=== PATIENT | female | born 1935 | race Caucasian/White ===

== ENCOUNTER 2018-12-28 07:04 | Emergency (ER) | payer MEDICARE, MEDICAID ==
[2018-12-28] MEDS ORDERED: ONDANSETRON 4 MG TAB.RAPDIS ONE (07:22)
[2018-12-28] MEDS ORDERED: HYDROCODONE/APAP 5/325MG 1 EACH TABLET ONE (07:22)
[2018-12-28] MEDS ORDERED: ONDANSETRON 4 MG TAB.RAPDIS SL ONE (07:30)
[2018-12-28] MEDS ORDERED: HYDROCODONE/APAP 5/325MG 1 EACH TABLET PO ONE (07:30)
== END 2018-12-28 08:45 | disposition home or self-care (01) ==
DX: S42.492A Other displaced fracture of lower end of left humerus, initial encounter for closed fracture (principal); I10 Essential (primary) hypertension; W01.0XXA Fall on same level from slipping, tripping and stumbling without subsequent striking against object, initial encounter; Y93.89 Activity, other specified; Y92.89 Other specified places as the place of occurrence of the external cause; Y99.8 Other external cause status
CPT/HCPCS: 29105; 73070; 99283; Q0162

== ENCOUNTER 2019-02-08 13:26 | Inpatient (IN) | payer MEDICARE, MEDICAID ==
[~2019-02-08] VITALS: Ht 142.2 cm; Wt 74.4 kg
--- NOTE | 2019-02-08 13:30 | NUR ---
PT [id number], FROM HOME, C/O BACK PAIN x 2 DAYS, PT IS AAOX2, NOT IN RESPIRATORY DISTRESS, HOOKED TO MONITOR, KEPT RESTED AND COMFORTABLE, WILL CONTINUE TO MONITOR. AWAITING ER MD FOR EVAL.
--- NOTE | 2019-02-08 13:50 | NUR ---
KALIE REILLY AT BEDSIDE FOR EVAL.
[2019-02-08] MEDS ORDERED: TRAMADOL HCL 50 MG TABLET PO ONE (14:00)
[2019-02-08] MEDS ORDERED: IV NS 0.9% 1,000 ML BAG IV ONE (14:00)
--- NOTE | 2019-02-08 14:10 | NUR ---
IV LINE ESTABLISHED, BLOOD DRAWNED AND SENT TO LAB.
--- NOTE | 2019-02-08 14:16 | NUR ---
URINE SPECIMEN COLLECTED AND SENT TO LAB.
[2019-02-08] MEDS ORDERED: TRAMADOL HCL 50 MG TABLET ONE (14:17)
[2019-02-08] MEDS ORDERED: ONDANSETRON HCL/PF 4 MG/2 ML VIAL ONE (14:21)
[2019-02-08] MEDS ORDERED: MORPHINE SULFATE INJ 2 MG/ML DISP.SYRIN ONE ×2 (14:21→16:06)
[2019-02-08 14:28] LABS: APPEARANCE,URINE Clear (CLEAR); BILIRUBIN,URINE Negative (NEGATIVE); BLOOD, URINE Trace-intact Ery/uL (NEGATIVE); COLOR,URINE Yellow (YELLOW); KETONES,URINE Negative (NEGATIVE); LEUKOCYTE ESTERASE ,URINE Negative (NEGATIVE); NITRITE, URINE Negative (NEGATIVE); PROTEIN,URINE Negative (NEGATIVE); UGLUCOSE Negative (NEGATIVE); UROBILINOGEN,URINE 0.2 EU/dL (0.2)
[2019-02-08 14:29] LABS: BACTERIA,URINE Few /HPF (None Seen); RBC,URINE 0-2 /HPF (0-2); SQUAMOUS EPITHELIAL CELL,UR Few /HPF (None Seen); WBC,URINE 0-2 /HPF (0-3)
[2019-02-08] MEDS ORDERED: ONDANSETRON HCL/PF 4 MG/2 ML VIAL IV ONE (14:30)
[2019-02-08] MEDS ORDERED: MORPHINE SULFATE INJ 2 MG/ML DISP.SYRIN IV ONE ×2 (14:30→16:30)
--- NOTE | 2019-02-08 14:33 | NUR ---
EIGHT ARM OPERATOR AT BEDSIDE FOR XRAY.
[2019-02-08] MEDS ORDERED: METO-357 PO (15:51)
[2019-02-08 15:58] LABS: BASOPHILS # (AUTO) 0.1 /CMM (0.0-0.2); BASOPHILS % (AUTO) 0.7 % (0.0-2.0); EOSINOPHILS % (AUTO) 0.7 % (0.0-6.0); HEMATOCRIT 46 % (33-45); HEMOGLOBIN 15.9 g/dL (11.5-14.8); LYMPHOCYTES # (AUTO) 1.6 /CMM (0.8-4.8); LYMPHOCYTES % (AUTO) 17.8 % (20.0-44.0); MEAN CORPUSCULAR HGB CONC 34 g/dl (31.0-36.0); MEAN CORPUSCULAR VOLUME 95 fL (82-100); MONOCYTES # (AUTO) 0.5 /CMM (0.1-1.30); MONOCYTES % (AUTO) 5.7 % (2.0-12.0); NEUTROPHILS # (AUTO) 6.7 /CMM (1.8-8.9); NEUTROPHILS % (AUTO) 75.1 % (43.0-81.0); PLATELET COUNT (AUTO) 204 /CMM (150-450); WHITE BLOOD COUNT (AUTO) 8.9 K/uL (4.3-11.0)
[2019-02-08 16:01] LABS: CARBON DIOXIDE 23 mmol/L (21-32); CHLORIDE 107 mmol/L (98-107); CREATININE 1.4 mg/dL (0.6-1.3); GLUCOSE 112 mg/dL (74-106); POTASSIUM 3.8 mmol/L (3.5-5.1); SODIUM SERUM 140 mmol/L (136-145); UREA NITROGEN, BLOOD 28 mg/dL (7-18)
[2019-02-08 16:07] LABS: ALANINE AMINOTRANSFERASE 19 U/L (12-78); ALBUMIN 3.6 g/dL (3.4-5.0); ALKALINE PHOSPHATASE 220 U/L (46-116); ASPARTATE AMINOTRANSFERASE 20 U/L (15-37); BILIRUBIN,DIRECT 0.1 mg/dL (0.0-0.2); BILIRUBIN,TOTAL 0.5 mg/dL (0.2-1.0); TOTAL PROTEIN, SERUM 7.7 g/dL (6.4-8.2)
[2019-02-08 16:28] LABS: CALCIUM, SERUM 9.9 mg/dL (8.5-10.1)
--- NOTE | 2019-02-08 16:33 | NUR ---
[facility]
--- NOTE | 2019-02-08 17:03 | NUR ---
REPORT GIVEN TO LETHA DIXON FOR RENE.
--- NOTE | 2019-02-08 17:50 | NUR ---
MS RN ADMITTING NOTES ADMITTED 83 Y/O FEMALE TO UNIT VIA GURNEY ACCOMPANIED BY 2 E.R STAFF AND DAUGHTER. A/O X 4. ABLE TO MAKE NEEDS KNOWN. PATIENT ORIENTED TO UNIT, ROOM AND STAFF. ON ROOM AIR, BREATHING EVEN AND UNLABORED. V/S TAKEN AND RECORDED. PATIENT REFUSED SKIN ASSESSMENT. LUNGS CLEAR ON AUSCULTATION. PT WITH IV ACCESS ON RIGHT HAND #18, CURRENTLY SL. SAFETY MEASURES INITIATED. BED PLACED IN LOW LOCKED POSITION WITH SIDE RAILS UP X2. CALL LIGHT WITHIN REACH. WILL CONTINUE TO MONITOR.
[2019-02-08] MEDS ORDERED: ZOLPIDEM TARTRATE 5 MG TABLET PO PRN (18:00)
[2019-02-08] MEDS ORDERED: ACETAMINOPHEN 325 MG TABLET PO PRN (18:00)
[2019-02-08] MEDS ORDERED: MAG HYDROX/AL HYDROX/SIMETH 30 ML UDC PO PRN (18:00)
[2019-02-08] MEDS ORDERED: Z GUARD REMEDY 2 OZ OINT TP PRN (18:00)
[2019-02-08] MEDS ORDERED: ONDANSETRON HCL/PF 4 MG/2 ML VIAL IVP PRN (18:00)
[2019-02-08] MEDS: IV NS 0.9% 1,000 ML IV PRN (18:14)
[2019-02-08] MEDS: METHOCARBAMOL (500MG) 500 MG TABLET PO SCH ×2 (18:23→23:15)
[2019-02-08] MEDS: ENOXAPARIN SODIUM 30 MG/0.3 ML DISP.SYRIN SQ SCH (18:25)
[2019-02-08] MEDS ORDERED: KEY,NONCONTROL,TO KEEP IN PYXI 1 EA MC ONE (18:56)
--- NOTE | 2019-02-08 19:00 | NUR ---
MS RN NOTES PATIENT IN BED RESTING COMFORTABLY IN MODERATE HIGH BACK REST. A/O X 4. MALDIVIAN SPEAKING ONLY. DAUGHTER IS AT BEDSIDE. NOT IN ANY DISTRESS AT THIS TIME. REFUSED SKIN ASSESSMENT. IV FLUIDS INFUSING WELL WITH NO S/S OF INFILTRATION. SAFETY MEASURES IN PLACE, BED IN LOW LOCKED POSITION WITH SIDE RAILS UP X 2. CALL LIGHT WITHIN REACH. ENDORSED TO PLASTICS FITTER NURSE FOR RENE.
--- NOTE | 2019-02-08 19:12 | NUR ---
TEXTED DR. LEE FOR MRI APPROVAL.
--- NOTE | 2019-02-08 19:15 | NUR ---
MS RN NOTES RECEIVED PT IN BED AWAKE AND ABLE TO MAKE NEEDS KNOWN WITH FAMILY AT BEDSIDE. PT A/O X3 AND CZECH SPEAKING. RESPIRATIONS EVEN AND UNLABORED WITH NO S/S OF ACUTE DISTRESS OR SOB NOTED. NO COMPLAINTS OF PAIN AT THIS TIME. PT WITH RHAND #18G PATENT AND INTACT INFUSING NS @75ML/HR. SAFETY MEASURES IN PLACE WITH BED IN LOWEST LOCKED POSITION WITH SIDE RAILS UP X 2. CALL LIGHT WITHIN REACH. WILL CONTINUE TO MONITOR.
--- NOTE | 2019-02-08 19:17 | NUR ---
MRI APPROVED. CALLED [facility] NO RESPONSE YET.
[2019-02-08 20:00] VITALS: BP 142/89
[2019-02-08] MEDS: HYDROCODONE/APAP 5/325MG 1 EACH TABLET PO PRN (21:24)
[2019-02-08] MEDS: METOPROLOL TARTRATE 50 MG TABLET PO SCH (21:24)
[2019-02-09] MEDS: MORPHINE SULFATE INJ 2 MG/ML DISP.SYRIN IV PRN ×3 (00:42→22:23)
[2019-02-09] MEDS ORDERED: METHOCARBAMOL (500MG) 500 MG TABLET ONE (05:55)
[2019-02-09] MEDS: METHOCARBAMOL (500MG) 500 MG TABLET PO SCH ×3 (06:06→19:11)
[2019-02-09] MEDS: IV NS 0.9% 1,000 ML IV PRN (06:24)
--- NOTE | 2019-02-09 06:45 | NUR ---
MS RN NOTES PT IN BED AWAKE AND ABLE TO MAKE NEEDS KNOWN WITH FAMILY AT BEDSIDE. PT A/O X3 AND COOK ISLANDER SPEAKING. RESPIRATIONS EVEN AND UNLABORED WITH NO S/S OF ACUTE DISTRESS OR SOB NOTED THROUGHOUT SHIFT. NO COMPLAINTS OF PAIN AT THIS TIME. PT WITH RHAND #18G PATENT AND INTACT INFUSING NS @75ML/HR. PT KEPT CLEAN, DRY, AND COMFORTABLE. PT REFUSED TURNING Q2 HOURS THROUGHOUT SHIFT. PT REFUSED SKIN ASSESSMENT AND PICTURES. SAFETY MEASURES IN PLACE WITH BED IN LOWEST LOCKED POSITION WITH SIDE RAILS UP X 2. CALL LIGHT WITHIN REACH. WILL ENDORSE TO ONCOMING NURSE FOR RENE.
--- NOTE | 2019-02-09 07:10 | NUR ---
RN OPENING NOTES RECEIVED PATIENT IN BD RESTING. NOT IN ANY FORM OF DISTRESS. NO SOB. DENIED PAIN OR DISCOMFORT AT THIS TIME. DAUGHTER AT BEDSIDE. IV ACCESS INTACT AND PATENT. NEEDS ATTENDED. KEPT PATIENT SAFE AND COMFORTABLE. BED IN LOW/KRISTAN DPSOTION, SIDERAILS UPX2, CALL LIGHT IN REACH. WILL MONIOTR ACCORDNGLY.
[2019-02-09 08:00] VITALS: BP 138/80
[2019-02-09 08:05] LABS: CALCIUM, SERUM 8.6 mg/dL (8.5-10.1); CREATININE 1.1 mg/dL (0.6-1.3); PHOSPHORUS 3.2 mg/dL (2.5-4.9); POTASSIUM 3.4 mmol/L (3.5-5.1)
[2019-02-09 08:12] LABS: THYROID STIMULATING HORMONE 2.041 uIU/mL (0.358-3.74)
[2019-02-09 08:24] LABS: BASOPHILS % (AUTO) 0.5 % (0.0-2.0); HEMATOCRIT 40 % (33-45); HEMOGLOBIN 13.4 g/dL (11.5-14.8); LYMPHOCYTES # (AUTO) 1.7 /CMM (0.8-4.8); LYMPHOCYTES % (AUTO) 24.3 % (20.0-44.0); MEAN CORPUSCULAR HGB CONC 33 g/dl (31.0-36.0); MEAN CORPUSCULAR VOLUME 95 fL (82-100); MONOCYTES # (AUTO) 0.4 /CMM (0.1-1.30); MONOCYTES % (AUTO) 6.2 % (2.0-12.0); NEUTROPHILS # (AUTO) 4.6 /CMM (1.8-8.9); PLATELET COUNT (AUTO) 164 /CMM (150-450); RED BLOOD CELL COUNT(AUTO) 4.25 MIL/uL (4.0-5.2); WHITE BLOOD COUNT (AUTO) 6.9 K/uL (4.3-11.0)
[2019-02-09] MEDS: METOPROLOL TARTRATE 50 MG TABLET PO SCH ×2 (08:54→22:22)
[2019-02-09] MEDS ORDERED: METOPROLOL SUCCINATE 50 MG TAB.SR.24H PO SCH (09:00)
[2019-02-09] MEDS: MAGNESIUM HYDROXIDE 30 ML UDC PO PRN (10:42)
[2019-02-09] MEDS: HYDROCODONE/APAP 10/325MG 1 EA TABLET PO PRN (10:43)
[2019-02-09] MEDS ORDERED: POTASSIUM CHLORIDE 20 MEQ TAB.PRT.SR PO SCH (11:30)
--- NOTE | 2019-02-09 15:00 | NUR ---
JU received a call from corrections caseworker Varsha stating that the pt' would like to apply for [facility]. JU contacted [facility] at and spoke with [employer] worker Swathi and initiated SS application. . JU updated corrections caseworker Varsha with aforementioned information and requested her to forward the information to pt and her daughter.
[2019-02-09 16:00] VITALS: BP 133/82
[2019-02-09] MEDS: ENOXAPARIN SODIUM 30 MG/0.3 ML DISP.SYRIN SQ SCH (18:46)
--- NOTE | 2019-02-09 19:17 | NUR ---
Met with patient and daughter Debra at bedside. Patient primary language is Burkinan. Most info was obtained from her daughter. 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 She lives locally on the first floor apartment with 5 steps to entrance. Family reports that patient was ambulatory and physically active two weeks prior to admission . She started having back pain and progressed to patient not able to ambulate. Has no DME or homehealth reported. Offered ARU or SNF short term but patient prefer to return home with home PT and DME. Hosp bed and wheelchair was arranged with [facility] [phone] pending verification of Medicare benefits. ornamental bronze worker also initiated application for [facility] and was provided with case# [id number]. Patient pcp is Dr. Slick Rosario [phone]. Family is requesting ambulance transportation when discharge. Addendum: 02/09/19 at 1921 by VANE HAN RN Amended: Links added.
--- NOTE | 2019-02-09 19:31 | NUR ---
rn closing notes patient in stable condition. daughter at bedside. all needs attended and provided. all due medications given as ordered. assisted with adls. turned and repositioned patient every 2hrs as needed. kept patient safe and comfortable. bed in low/locked postion, siderails upx2,c all light in reach. endorsed to night rn for shari.
--- NOTE | 2019-02-09 19:47 | NUR ---
MS RN RECEIVE PT IN BED PT AWAKE A/O X 3, STABLE AND NOT IN DISTRESS. NO SOB. NO C/O OF PAIN. WILL CONT TO MTR
[2019-02-09 20:00] VITALS: BP 123/64
[2019-02-10] MEDS: METHOCARBAMOL (500MG) 500 MG TABLET PO SCH ×5 (00:09→23:03)
[2019-02-10] MEDS: IV NS 0.9% 1,000 ML IV PRN (03:14)
[2019-02-10] MEDS: MORPHINE SULFATE INJ 2 MG/ML DISP.SYRIN IV PRN ×2 (05:13→08:05)
--- NOTE | 2019-02-10 06:13 | NUR ---
MS RN ASLEEP AND EASILY AWAKEN, AM CARE RENDERED. PAIN MEDICATED WITH PRN PAIN MEDICATION WITH RELIEF. NO S/S OF DISTRESS, NURSING CARE RENDERED, KEPT CLEAN AND DRY AND COMFORTABLE. NEEDS ATTENDED AND ANTICIPATED. SAFETY MEASURES AT ALL TIMES. ENDORSE TO THE NEXT SHIFT. ASSISTED REPOSITION Q2HR.
[2019-02-10 06:54] LABS: CALCIUM, SERUM 8.6 mg/dL (8.5-10.1); CREATININE 0.8 mg/dL (0.6-1.3); POTASSIUM 3.8 mmol/L (3.5-5.1)
--- NOTE | 2019-02-10 07:20 | NUR ---
RN OPENING NOTES RECEIVED PATIENT IN BED RESTING. DAUGHTER AT BEDSIDE. NOT IN ANY FORM OF DISTRESS. NO SOB. DENIED PAIN OR DISCOMFORT AT THIS TIME. DAUGHTER AT BEDSIDE. IV ACCESS INTACT AND PATENT. NEEDS ATTENDED. KEPT PATIENT SAFE AND COMFORTABLE. BED IN LOW/LOCKED POSITION, SIDERAILS UPX2, CALL LIGHT IN REACH. WILL MONIOTR ACCORDNGLY.
[2019-02-10 08:00] VITALS: BP 105/56
[2019-02-10] MEDS: MAGNESIUM HYDROXIDE 30 ML UDC PO PRN (08:46)
[2019-02-10] MEDS: CALCIUM CARB 600MG /VIT D 1 EACH TABLET PO SCH (08:47)
[2019-02-10] MEDS: METOPROLOL TARTRATE 50 MG TABLET PO SCH ×2 (08:52→21:00)
--- NOTE | 2019-02-10 10:06 | NUR ---
WOUND CARE CONSULT: PT PRESENTS WITH SKIN CONDITION WITH SOME RED SPOTS AND SCABS FROM ITCHING/PICKING AT SKIN, LEFT BREASTFOLD RASH WITH OPEN SKIN AND BRUISING, PRESENT ON ADMISSION. DEFER TO MD FOR GENERALIZED SKIN CONDITION WITH ITCHING. RECOMMENDATIONS MADE FOR SKIN PROTECTION AND LEFT BREASTFOLD RASH. DISCUSSED WITH NURSING STAFF. PT ON VIVIEN ISOFLEX LOW AIRLOSS BED. WILL SEE PRN. MD IN AGREEMENT WITH PLAN OF CARE. CURRENT LAWANDA SCORE IS 14. Addendum: 02/10/19 at 1007 by KELLEN BRIGGS WNDNU Amended: Links added.
[2019-02-10] MEDS: HYDROCODONE/APAP 10/325MG 1 EA TABLET PO PRN (10:32)
--- NOTE | 2019-02-10 13:00 | NUR ---
rn notes hot packs applied to patient's back as daughter requested.
--- NOTE | 2019-02-10 14:20 | NUR ---
rn note per patient's daughter, pain was relieved by hot packs.
[2019-02-10] MEDS ORDERED: diphenhydrAMINE HCL ELIX 25 MG/10 ML UDC PO PRN (14:30)
--- NOTE | 2019-02-10 15:30 | NUR ---
rn notes hot packs applied to patients back. verbalized pain relief
[2019-02-10] MEDS: LIDOCAINE 5% (PATCH) 1 EA PATCH TP SCH (16:08)
[2019-02-10] MEDS: KETOROLAC TROMETHAMINE INJ 30 MG/ML VIAL IV SCH ×2 (16:08→22:47)
[2019-02-10] MEDS: CLOTRIMAZOLE 1% 15 GM TUBE TP SCH (16:09)
[2019-02-10 16:13] VITALS: BP 101/56
[2019-02-10] MEDS: ENOXAPARIN SODIUM 30 MG/0.3 ML DISP.SYRIN SQ SCH (17:20)
--- NOTE | 2019-02-10 19:10 | NUR ---
rn closing notes patient in stable condition. daughter at bedside. all needs attended and provided. all due medications given as ordered. assisted with adls. turned and repositioned patient every 2hrs as needed. kept patient safe and comfortable. bed in low/locked postion, siderails upx2,c all light in reach. endorsed to trey xie for shari.
--- NOTE | 2019-02-10 19:23 | NUR ---
MS RN RECEIVE PT IN BED PT AWAKE A/O X 3, STABLE AND NOT IN DISTRESS. NO SOB. NO C/O OF PAIN AT THIS TIME. WILL CONT TO MTR.
[2019-02-10 20:00] VITALS: BP 92/50
[2019-02-11] MEDS: KETOROLAC TROMETHAMINE INJ 30 MG/ML VIAL IV SCH ×2 (06:02→15:11)
[2019-02-11] MEDS: METHOCARBAMOL (500MG) 500 MG TABLET PO SCH ×3 (06:02→17:58)
--- NOTE | 2019-02-11 06:25 | NUR ---
MS RN ASLEEP AND EASILY AWAKEN. SLEPT WELL. PAIN MEDICATED WITH ROUTINE PAIN MEDICATION WITH RELIEF, DAUGHTER AT BEDSIDE, AM CARE RENDERED. KEPT CLEAN, DRY AND COMFORTABLE. NEEDS ATTENDED AND ANTICIPATED. REPOSITION Q2HR. SAFETY MEASURES AT ALL TIMES. WILL CONT TO MTR
[2019-02-11 07:07] LABS: IMMUNOGLOBULIN A, SERUM 215 mg/dL (64-422); IMMUNOGLOBULIN G, SERUM 1127 mg/dL (700-1600); IMMUNOGLOBULIN M, SERUM 164 mg/dL (26-217)
[2019-02-11 07:30] VITALS: BP 148/94
--- NOTE | 2019-02-11 07:30 | NUR ---
RN MS NOTES PT IN BED, ASLEEP, EASILY AROUSABLE, ALERT AND VERBALLY RESPONSIVE, [place] AT BEDSIDE, PT STATED THAT SHE STILL HAS MILD BACK PAIN BUT DOES NOT WANT ANY PAIN MEDICINE AT THIS TIME, KEPT COMFORTABLE AND CLOTH WIRE WEAVER BED.
[2019-02-11 08:06] LABS: CANCER AG, 125 34.7 U/mL (0.0-38.1); CANCER AG, 15-3 16.2 U/mL (0.0-25.0)
[2019-02-11] MEDS: CALCIUM CARB 600MG /VIT D 1 EACH TABLET PO SCH (08:15)
[2019-02-11] MEDS: CLOTRIMAZOLE 1% 15 GM TUBE TP SCH ×2 (08:19→18:03)
[2019-02-11] MEDS: METOPROLOL TARTRATE 50 MG TABLET PO SCH ×2 (09:00→21:12)
--- NOTE | 2019-02-11 09:59 | NUR ---
RN MS NOTES PT SEEN AND EXAMINED BY DR. EVERETT, PLAN OF CARE DISCUSSED WITH PT AND DAUGHTER AT BEDSIDE, VERBALIZED UNDERSTANDING.
--- NOTE | 2019-02-11 13:00 | NUR ---
RN MS NOTES PT IN BED, ASLEEP, EASY TO AROUSE, ALERT AND VERBALLY RESPONSIVE, DAUGHTER AT BEDSIDE, CALL LIGHT WITHIN REACH, ASSISTED WITH MEALS, NEEDS ATTENDED.
[2019-02-11] MEDS: LIDOCAINE 5% (PATCH) 1 EA PATCH TP SCH (15:21)
[2019-02-11 16:00] VITALS: BP 151/74
[2019-02-11] MEDS: ENOXAPARIN SODIUM 30 MG/0.3 ML DISP.SYRIN SQ SCH (17:59)
--- NOTE | 2019-02-11 19:03 | NUR ---
RN MS NOTES PT IN BED, ASLEEP, EASY TO AROUSE, ALERT AND ORIENTED, DAUGHTER ENRICO AT BEDSIDE, NO COMPLAINT OF PAIN AT THIS TIME, RESPIRATIONS NORMAL, SEEN BY DR. RUEDA, CALL LIGHT WITHIN REACH, SCHEDULED MEDS GIVEN ORDERED, ALL NEEDS ATTENDED.
--- NOTE | 2019-02-11 19:37 | NUR ---
MS RN PT A/O X 3 DAUGHTER AT BEDSIDE, STABLE AND NOT IN DISTRESS, RESPIRATIONS EVEN AND UNLABORED. WILL CONT TO MTR.
[2019-02-11 20:00] VITALS: BP 157/83
[2019-02-11] MEDS: MORPHINE SULFATE INJ 2 MG/ML DISP.SYRIN IV PRN (21:13)
[2019-02-12] MEDS: METHOCARBAMOL (500MG) 500 MG TABLET PO SCH ×5 (00:22→23:43)
[2019-02-12] MEDS: MORPHINE SULFATE INJ 2 MG/ML DISP.SYRIN IV PRN (02:02)
--- NOTE | 2019-02-12 06:42 | NUR ---
MS RN NO SIGNIFICANT CHANGES THROUGHOUT THE SHIFT. SLEPT WELL. PAIN MEDICATED WITH PRN PAIN MEDICATION WITH RELIEF, DAUGHTER AT BEDSIDE, AM CARE RENDERED. KEPT CLEAN, DRY AND COMFORTABLE. NEEDS ATTENDED AND ANTICIPATED. GOOD SKIN CARE. SAFETY MEASURES AT ALL TIMES. WILL ENDORSE TO NEXT SHIFT.
[2019-02-12 07:11] LABS: BASOPHILS % (AUTO) 0.4 % (0.0-2.0); EOSINOPHILS % (AUTO) 3.2 % (0.0-6.0); HEMATOCRIT 38 % (33-45); LYMPHOCYTES # (AUTO) 1.9 /CMM (0.8-4.8); LYMPHOCYTES % (AUTO) 30.7 % (20.0-44.0); MEAN CORPUSCULAR HGB CONC 35 g/dl (31.0-36.0); MEAN CORPUSCULAR VOLUME 92 fL (82-100); MONOCYTES # (AUTO) 0.4 /CMM (0.1-1.30); MONOCYTES % (AUTO) 6.5 % (2.0-12.0); NEUTROPHILS # (AUTO) 3.6 /CMM (1.8-8.9); NEUTROPHILS % (AUTO) 59.2 % (43.0-81.0); PLATELET COUNT (AUTO) 146 /CMM (150-450); RED BLOOD CELL COUNT(AUTO) 4.11 MIL/uL (4.0-5.2)
[2019-02-12 07:29] LABS: CALCIUM, SERUM 8.1 mg/dL (8.5-10.1); CREATININE 0.8 mg/dL (0.6-1.3); POTASSIUM 3.6 mmol/L (3.5-5.1)
--- NOTE | 2019-02-12 07:30 | NUR ---
RN MS NOTES PT IN BED, ASLEEP, EASY TO AROUSE, ALERT AND ORIENTED, NO COMPLAINT OF PAIN AT THIS TIME, NOT IN DISTRESS, CALL LIGHT WITHIN REACH, DAUGHTER ENRICO AT BEDSIDE, KEPT WARM AND COMFORTABLE IN BED, NEEDS ATTENDED..
[2019-02-12 08:00] VITALS: BP 141/74
[2019-02-12] MEDS: METOPROLOL TARTRATE 50 MG TABLET PO SCH ×2 (09:00→21:14)
[2019-02-12] MEDS: CALCIUM CARB 600MG /VIT D 1 EACH TABLET PO SCH (09:08)
[2019-02-12] MEDS: CLOTRIMAZOLE 1% 15 GM TUBE TP SCH ×2 (09:11→17:29)
[2019-02-12] MEDS: HYDROCODONE/APAP 5/325MG 1 EACH TABLET PO PRN (12:02)
[2019-02-12] MEDS: LIDOCAINE 5% (PATCH) 1 EA PATCH TP SCH (15:28)
[2019-02-12 16:00] VITALS: BP 134/70
[2019-02-12] MEDS: ENOXAPARIN SODIUM 30 MG/0.3 ML DISP.SYRIN SQ SCH (17:29)
[2019-02-12] MEDS ORDERED: IV NS 0.9% 1,000 ML IV PRN (18:00)
--- NOTE | 2019-02-12 18:10 | NUR ---
RN MS NOTES PT IN BED, RESTING, NO COMPLAINT OF PAIN AT THIS TIME, NOT IN DISTRESS, DAUGHTER AT BEDSIDE, PM MEDS GIVEN ORDERED, SEEN BY DR. OLMEDO, ORDERS GIVEN FOR TOMORROW'S SURGERY, DAUGHTER SIGNED ALL CONSENTS, ALL NEEDS ATTENDED.
--- NOTE | 2019-02-12 19:30 | NUR ---
RECEIVED PATIENT IN BED AWAKE, AO X 3, ABLE TO MAKE NEEDS KNOWN. NO ACUTE DISTRESS NOTED. MONITORED FOR PAIN. IV SITE PATENT, INTACT; FLUSHED. SAFETY REMINDERS GIVEN. ON LOW BED WITH BILATERAL UPPER SIDE RAILS UP. CALL [place] WITHIN EASY REACH. WILL CONTINUE TO MONITOR. DAUGHTER AT BEDSIDE.
[2019-02-12 20:00] VITALS: BP 139/75
[2019-02-12] MEDS: IV NS 0.9% 1,000 ML IV PRN (23:47)
[2019-02-13] MEDS ORDERED: IV NS 0.9% 1,000 ML BAG IV PRN
[2019-02-13] MEDS: METHOCARBAMOL (500MG) 500 MG TABLET PO SCH ×4 (06:00→23:31)
--- NOTE | 2019-02-13 06:00 | NUR ---
PATIENT ASLEEP, EASILY AROUSABLE. RESPIRATIONS EVEN. NO SIGNS OF PAIN NOTED. DUE MEDS GIVEN WITH NO ASE NOTED. IVF INFUSING ORDERED. NPO SINCE MIDNIGHT. NEEDS ATTENDED. SAFETY PRECAUTIONS AND COMFORT MEASURES IN PLACE. WILL GIVE REPORT TO DAY SHIFT FOR CONTINUITY OF CARE. DAUGHTER AT BEDSIDE.
--- NOTE | 2019-02-13 07:20 | NUR ---
RN OPENING NOTES RECEIVED PATIENT IN BED RESTING. NOT IN ANY FORM OF DISTRESS. NO SOB. DENIED PAIN OR DISCOMFORT AT THIS TIME. DAUGHTER AT BEDSIDE. IV ACCESS INTACT AND PATENT. NEEDS ATTENDED. KEPT PATIENT SAFE AND COMFORTABLE. KEPT NPO, SCHEDULED FOR SURGERY TODAY. BED IN LOW/LOCKED POSITION, SIDERAILS UPX2, CALL LIGHT IN REACH. WILL MONIOTR ACCORDNGLY.
[2019-02-13 08:00] VITALS: BP 143/75
[2019-02-13 08:07] LABS: *SPE A/G RATIO 1.2 (0.7-1.7); *SPE ALBUMIN 2.9 g/dL (2.9-4.4); *SPE ALPHA-1-GLOBULIN 0.2 g/dL (0.0-0.4); *SPE ALPHA-2-GLOBULIN 0.7 g/dL (0.4-1.0); *SPE BETA GLOBULIN 0.9 g/dL (0.7-1.3); *SPE GLOBULIN, TOTAL 2.5 g/dL (2.2-3.9); *SPE M-SPIKE Not Observed g/dL (Not Observed); *SPEGAMMA GLOBULIN 0.7 g/dL (0.4-1.8)
--- NOTE | 2019-02-13 08:45 | NUR ---
RN NOTES SPOKE WITH DR MCCOY FOR CARDIAC CLEARANCE. PER MD, PATIENT IS CLEARED.
--- NOTE | 2019-02-13 08:52 | NUR ---
RN NOTES PATITIENT PICKED UP FOR SURGERY. ALL CONSENTS SIGNED.
[2019-02-13] MEDS ORDERED: ROCURONIUM BROMIDE 50 MG/5 ML ONE (09:25)
[2019-02-13] MEDS ORDERED: FENTANYL PF 100MCG/2ML AMPUL ONE ×2 (09:25→12:06)
[2019-02-13] MEDS ORDERED: IOHEXOL 240MG/ML 50 ML IV ONE (10:25)
[2019-02-13] MEDS ORDERED: BUPIVACAINE MPF 0.5% W/EPI INJ 30 ML VIAL ONE (10:26)
--- NOTE | 2019-02-13 10:42 | NUR ---
RT NOTE PT NOT FOUND IN ROOM FOR ROUTINE EKG ORDER.
[2019-02-13] MEDS ORDERED: ALBUTEROL FS 2.5 MG/3 ML VIAL.NEB ONE (12:01)
[2019-02-13] MEDS: CALCIUM CARB 600MG /VIT D 1 EACH TABLET PO SCH (13:43)
[2019-02-13] MEDS: CLOTRIMAZOLE 1% 15 GM TUBE TP SCH ×2 (13:48→17:01)
[2019-02-13] MEDS: METOPROLOL TARTRATE 50 MG TABLET PO SCH ×2 (13:48→22:00)
[2019-02-13 13:50] VITALS: BP 148/89
--- NOTE | 2019-02-13 14:00 | NUR ---
rn notes patient came back from surgery. not in any form of distress, VSS. on 4lpm o2 via NC, satting 92%. c/d/i dressing on on lower back.
[2019-02-13 14:15] VITALS: BP 139/80
[2019-02-13] MEDS: HYDROCODONE/APAP 10/325MG 1 EA TABLET PO PRN (14:54)
--- NOTE | 2019-02-13 14:59 | NUR ---
rn notes complains of pain on surgical incision site. [id number] given as ordered.
[2019-02-13 16:00] VITALS: BP 138/76
[2019-02-13] MEDS: LIDOCAINE 5% (PATCH) 1 EA PATCH TP SCH (17:00)
[2019-02-13] MEDS: ENOXAPARIN SODIUM 30 MG/0.3 ML DISP.SYRIN SQ SCH (17:55)
--- NOTE | 2019-02-13 19:30 | NUR ---
MS RN OPENING NOTE RECEIVED PATIENT IN BED. A/O X3. KITTITIAN SPEAKING, DAUGHTER AT BEDSIDE. ON OXYGEN AT 2L/MIN VIA NASAL CANNULA. RESPIRATIONS ARE EVEN AND UNLABORED. NO SOB NOTED. IN NO APPARENT DISTRESS AT THIS TIME. IV ACCESS IN RIGHT HAND #24 RUNNING NS@ 80ML/HR. BED IS LOW AND LOCKED, SIDE RAILS UP X2, HOB ELEVATED 45 DEGREES. CALL LIGHT WITHIN REACH. WILL CONTINUE TO MONITOR.
[2019-02-13 20:00] VITALS: BP 140/85
[2019-02-13] MEDS: HYDROCODONE/APAP 5/325MG 1 EACH TABLET PO PRN (20:11)
--- NOTE | 2019-02-13 20:11 | NUR ---
MS RN NOTE ADMINISTERED PRN NORCO 5/325 FOR PAIN 5/10 IN BACK. WILL CONTINUE TO MONITOR.
[2019-02-13] MEDS: IV NS 0.9% 1,000 ML IV PRN (23:25)
[2019-02-14] MEDS: METHOCARBAMOL (500MG) 500 MG TABLET PO SCH ×3 (05:48→17:24)
--- NOTE | 2019-02-14 06:45 | NUR ---
MS RN CLOSING NOTE PATIENT IN BED. A/O X3. CHILEAN SPEAKING, DAUGHTER REMAINS AT BEDSIDE. ON OXYGEN AT 5L/MIN VIA NASAL CANNULA. RESPIRATIONS ARE EVEN AND UNLABORED. NO SOB NOTED. NO DISTRESS NOTED. IV ACCESS IN LEFT WRIST #22 RUNNING NS@ 80ML/HR. BED REMAINS LOW AND LOCKED, SIDE RAILS UP X2, HOB ELEVATED 45 DEGREES. CALL LIGHT WITHIN REACH. WILL ENDORSE TO NEXT SHIFT FOR RENE.
[2019-02-14 08:00] VITALS: BP 131/70
--- NOTE | 2019-02-14 08:30 | NUR ---
RN OPENING NOTES PT AWAKE AND RESTING IN BED. DAUGHTER AT BEDSIDE. PT HAS LEFT WRIST #22 RUNNING NS @80 ML/HR. SAFETY PRECAUTIONS IN PLACE, BED IN LOWEST LOCKED POSITION, X2 SIDE RAILS UP AND CALL LIGHT WITHIN REACH. WILL CONTINUE TO MONITOR.
[2019-02-14] MEDS: METOPROLOL TARTRATE 50 MG TABLET PO SCH ×2 (09:23→21:18)
[2019-02-14] MEDS: CALCIUM CARB 600MG /VIT D 1 EACH TABLET PO SCH (09:23)
[2019-02-14] MEDS: CLOTRIMAZOLE 1% 15 GM TUBE TP SCH ×2 (09:24→16:43)
--- NOTE | 2019-02-14 11:07 | NUR ---
WOUND CARE CONSULT: PT PRESENTS WITH REDNESS TO AXILLARY AREAS AND RT BREASTFOLD WITH LESS REDNESS TO LEFT BREASTFOLD AT THIS TIME. PT SCRATCHES AT HER SKIN AT TIMES. RECOMMEND MOISTURIZER FOR DRY SKIN ON ARMS. DISCUSSED RECOMMENDATIONS WITH NURSING STAFF. WILL SEE PRJose Luis MARTINEZ IN AGREEMENT WITH PLAN OF CARE.
[2019-02-14] MEDS: IV NS 0.9% 1,000 ML IV PRN (12:29)
[2019-02-14 16:00] VITALS: BP_SYST 110; BP_SYST 138; BP_DIAS 68; BP_DIAS 75
[2019-02-14] MEDS: LIDOCAINE 5% (PATCH) 1 EA PATCH TP SCH (16:43)
[2019-02-14] MEDS: MINERAL OIL/PETROLATUM,WHITE 120 GM JAR TP SCH (16:44)
[2019-02-14] MEDS: HYDROCODONE/APAP 10/325MG 1 EA TABLET PO PRN (17:26)
[2019-02-14] MEDS: ENOXAPARIN SODIUM 30 MG/0.3 ML DISP.SYRIN SQ SCH (17:26)
[2019-02-14] MEDS: MAGNESIUM HYDROXIDE 30 ML UDC PO PRN (17:27)
--- NOTE | 2019-02-14 18:43 | NUR ---
RN CLOSING NOTES PT AWAKE AND RESTING IN BED. DAUGHTER AT BEDSIDE. PT HAS LEFT WRIST #22 RUNNING NS @80 ML/HR. SAFETY PRECAUTIONS IN PLACE, BED IN LOWEST LOCKED POSITION, X2 SIDE RAILS UP AND CALL LIGHT WITHIN REACH. ALL PATIENT NEEDS MET DURING SHIFT. MOM GIVEN PRN, AND NORCO FOR LOWER BACK PAIN. WILL ENDORSE TO SATELLITE DISH TECHNICIAN NURSE FOR CONTINUITY OF CARE.
--- NOTE | 2019-02-14 19:30 | NUR ---
MS RN OPENING NOTE RECEIVED PATIENT IN BED. A/O X3. SWEDISH SPEAKING, DAUGHTER AT BEDSIDE. ON OXYGEN AT 2L/MIN VIA NASAL CANNULA. O2 SAT 93% RESPIRATIONS ARE EVEN AND UNLABORED. NO SOB NOTED. IN NO APPARENT DISTRESS AT THIS TIME. IV ACCESS IN LEFT WRIST RUNNING NS@ 80ML/HR. BED IS LOW AND LOCKED, SIDE RAILS UP X2, HOB ELEVATED 45 DEGREES. CALL LIGHT WITHIN REACH. WILL CONTINUE TO MONITOR.
[2019-02-14 20:00] VITALS: BP 129/74
[2019-02-14 20:09] VITALS: BP 129/74
[2019-02-15] MEDS: METHOCARBAMOL (500MG) 500 MG TABLET PO SCH ×3 (00:16→12:07)
--- NOTE | 2019-02-15 05:30 | NUR ---
MS RN NOTE REMOVED LIDOCAINE PATCHES. WILL ENDORSE TO NEXT SHIFT TO ADMINISTER THEM AT 1730. WILL CONTINUE TO MONITOR.
[2019-02-15 07:00] VITALS: BP 144/77
--- NOTE | 2019-02-15 07:00 | NUR ---
MS RN CLOSING NOTE PATIENT IN BED. A/O X3. WALLISIAN SPEAKING, DAUGHTER REMAINS AT BEDSIDE. ON OXYGEN, REMAINS AT 2L/MIN VIA NASAL CANNULA. RESPIRATIONS ARE EVEN AND UNLABORED. NO SOB NOTED THROUGHOUT SHIFT. NO C/O PAIN. NO DISTRESS NOTED. IV ACCESS MAINTAINED IN LEFT WRIST# 22 PATENT AND SALINE LOCKED. PATIENT WISHES NOT TO BE CONNECTED AT THIS TIME. BED REMAINS LOW AND LOCKED, SIDE RAILS UP X2, HOB ELEVATED 45 DEGREES. CALL LIGHT WITHIN REACH. WILL ENDORSE TO NEXT SHIFT FOR RENE.
[2019-02-15 08:00] VITALS: BP 144/77
[2019-02-15 08:44] VITALS: BP 144/77
[2019-02-15] MEDS: CALCIUM CARB 600MG /VIT D 1 EACH TABLET PO SCH (08:44)
[2019-02-15] MEDS: METOPROLOL TARTRATE 50 MG TABLET PO SCH (08:44)
[2019-02-15] MEDS: MINERAL OIL/PETROLATUM,WHITE 120 GM JAR TP SCH (09:00)
[2019-02-15] MEDS: CLOTRIMAZOLE 1% 15 GM TUBE TP SCH (09:00)
[2019-02-15] MEDS: HYDROCODONE/APAP 10/325MG 1 EA TABLET PO PRN (12:07)
--- NOTE | 2019-02-15 15:18 | NUR ---
report called to Jaye MONAE ( [facility])
--- NOTE | 2019-02-15 16:15 | NUR ---
Patient cleared for D/C to Rehab by . Patient awake alert and oriented x3 ,partially blind. Daughter at bedside. Daughter refused D/C pictures. All D/c instructions and education provided to patient and her daughter: both verbalized understanding. Patient will f/u with the surgeon in one week.IV line removed; ID wrist band removed. All need attended; patient medicated before transportation and has no pain at this moment. Patient has no belongings: per daughter it was taken home. PAtient picked up by ambulance
== END 2019-02-15 16:15 | DRG 477 ==
LOC: ER 13:28 → MEDSG1 17:03 → MED 17:37
PROVIDERS: ADMIT Hospitalist
PROC: 0QS03ZZ Reposition Lumbar Vertebra, Percutaneous Approach (ICD-10-PCS; principal; 2019-02-13)
PROC: 0QU03JZ Supplement Lumbar Vertebra with Synthetic Substitute, Percutaneous Approach (ICD-10-PCS; principal; 2019-02-13)
PROC: 0QB03ZX Excision of Lumbar Vertebra, Percutaneous Approach, Diagnostic (ICD-10-PCS; principal; 2019-02-13)
DX: M80.08XA Age-related osteoporosis with current pathological fracture, vertebra(e), initial encounter for fracture (principal); N17.0 Acute kidney failure with tubular necrosis; I10 Essential (primary) hypertension; L85.3 Xerosis cutis; Z91.81 History of falling; M80.022D Age-related osteoporosis with current pathological fracture, left humerus, subsequent encounter for fracture with routine healing; M51.36 Other intervertebral disc degeneration, lumbar region; D18.09 Hemangioma of other sites; M47.816 Spondylosis without myelopathy or radiculopathy, lumbar region; Z74.01 Bed confinement status
CPT/HCPCS: 36415; 71045-TC; 72100-TC; 72131-TC; 72158-TC; 73060-TC; 80048-TC; 80061-TC; 80076-TC; 81000-TC; 82378; 82784; 83735-TC; 84100-TC; 84155; 84165; 84443-TC; 85025-TC; 85610-TC; 86300; 86304; 86334; 86850-TC; 87081-TC; 88305-TC; 88311-TC; 88312-TC; 93307-TC; 97110-TC; 97116-TC; 97530-TC; G0378; J0330; J0690; J1650; J1885; J2270; J2405; J2704; J2765; J3010; J3490; J7030; Q0163; Q9966